=== PATIENT | male | born 1970 ===

== ENCOUNTER 2016-09-08 14:19 | Emergency (ER) | payer OTHER ==
[2016-09-08 14:32] VITALS: RESP 18
[2016-09-08] MEDS ORDERED: Oxycodone/Acetaminophen 5/325 mg Tab PO STA (14:53)
--- NOTE | 2016-09-08 14:54 | C.PDOC ---
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 Patient complaints of lower back pain, right elbow pain and left knee injury. Patient states he accidentally fell off a ladder while at work around 12PM. Patient notes of pain and abrasions and is able to walk without difficulty. Patient denies LOC or head injury. SP FALL ENGINEERING DESIGNER CO R LOWER BACK, R ELBOW AND L KNEE INJURY. PS ACCID FELL OFF LADDER WHILE @ WORK 12'. NO LOC. CO PAIN AND ABRASIONS. AMBUL WO DIFF. DENIES OTHER ASSOC INJURY EXAM MILD DIST NONTOXIC HEENT ATRAUM NECK SUPPLE NONTEND LUNGS CTA B/L ABD NEG BACK +R LOWER BACK TEND W SACRAL TEND; NO DEFORM. LIMTED R ROTATION DUE TO PAIN. EXT R ELBOW MILD SWELL AROM WO DIFF; L KNEE NO SWELL ATRAUM AROM WO DIFF SKIN +ABRASIONS W BRUISING R LOWER BACK, R ELBOW. NO FB, BLEEDING NEURO INTACT - HPI Time Seen by Provider: 09/08/16 14:47 Chief Complaint (Nursing): Back Pain History Per: Patient History/Exam Limitations: no limitations Onset/Duration Of Symptoms: Sudden Onset (3hrs ENGINEERING DESIGNER) Past Medical History Reviewed: Historical Data, Nursing Documentation, Vital Signs Vital Signs: Last Vital Signs Temp 98 F 09/08/16 17:21 Pulse 71 09/08/16 17:21 Resp 18 09/08/16 17:21 BP 120/70 09/08/16 17:21 Pulse Ox 100 09/08/16 17:21 Family History: States: No Known Family Hx - Social History Hx Alcohol Use: Yes Hx Substance Use: No Review Of Systems Except As Marked, All Systems Reviewed And Found Negative. Constitutional: Positive for: Other (No head injury. No LOC. ) Musculoskeletal: Positive for: Back Pain (Right lower back pain), Other ((+) Right elbow pain. Left knee injury. ) Physical Exam - Physical Exam Appears: Well, Non-toxic, In Acute Distress (Mild) Skin: Warm, Dry, No Rash, Other (Abrasions with brusing to the right lower back and right elbow. No FB. No Bleeding. ) Head: Atraumatic, Normacephalic, No Swelling, No Abrasion, No Laceration Neck: Normal, Normal ROM, No Midline Cervical Tenderness, No Paracervical Tenderness, Supple Chest: Symmetrical Cardiovascular: Rhythm Regular, No Murmur Respiratory: Normal Breath Sounds, No Rales, No Rhonchi, No Stridor, No Wheezing Gastrointestinal/Abdominal: Normal Exam, Soft, No Tenderness, No Mass, No Guarding, No Rebound, No Hernia Back: Other ((+) Right lower back tenderness with sacral tenderness. Limited right rotation due to pain. ) Extremity: Capillary Refill (<2), Other (Right Elbow - Mild swelling. AROM without difficulty. Left Knee - No swelling. Atraum. AROM without difficulty. ) Neurological/Psych: Oriented x3, Normal Speech, Normal Motor ED Course And Treatment O2 Sat by Pulse Oximetry: 96 - Other Rad X-Ray - Lumbar Spine X-Ray: Viewed By Me, Read By Radiologist Interpretation: PROCEDURE: Radiographs of the Lumbar Spine. HISTORY: TRAUMA. COMPARISON: No prior. FINDINGS: BONES: No acute compression fractures nor retropulsed fragments. Vertebral bodies exhibit normal stature aside for minor multilevel fish-mouth endplate deformities. There is straightening of the normal cervical lordosis. Vertebral bodies otherwise exhibit normal alignment. DISC SPACES: Disc space heights relatively maintained. Small marginal anterior osteophyte formation seen at the L5-S1 through the L2-L3 levels in somewhat decreasing order of sites. Facet joints are slightly prominent at the L5-S1 and L4-L5 levels. OTHER FINDINGS: None. IMPRESSION: No acute compression fractures. Minor multilevel degenerative spondylosis. X-Ray - Right Knee X-Ray: Viewed By Me, Read By Radiologist Interpretation: PROCEDURE: Right Knee Radiographs. HISTORY: TRAUMA. COMPARISON: None. FINDINGS: BONES: No acute displaced fracture nor dislocation. The osseous structures intact. JOINTS: Joint spaces preserved. Tiny posterior superior patellar osteophyte. JOINT EFFUSION: Questionable trace joint effusion however evaluation for effusion somewhat limited due to over flexion in the lateral projection. OTHER FINDINGS: None. IMPRESSION: No acute fractures. Questionable trace suprapatellar joint Tiny posterior superior patellar osteophyte X-Ray - Right Elbow X-Ray: Viewed By Me, Read By Radiologist Interpretation: PROCEDURE: Radiographs of the right elbow. HISTORY: TRAUMA. COMPARISON: No prior. FINDINGS: BONES: Normal. No fracture. JOINTS: Normal. No osteoarthritis. SOFT TISSUES: Normal. JOINT EFFUSION: Note posterior nor large anterior joint effusion identified. OTHER FINDINGS: There are no radiopaque foreign bodies. IMPRESSION: Unremarkable radiographs of the right elbow. If symptoms persist or occult fracture suspected clinically, consider repeat radiographs in 7-10 days as most fractures should become radiographically evident in this timeframe. X-Ray - Sacrum & Coccyx X-Ray: Viewed By Me, Read By Radiologist Interpretation: No fractures noted. No dislocations. Reevaluation Time: 17:14 Reassessment Condition: Improved Medical Decision Making Medical Decision Making: PLAN: * X-Ray - Right Knee, Lumbar Spine, Right Elbow, Sacrum & Coocyx * Motrin PO * Percocet PO Disposition Counseled Patient/Family Regarding: Studies Performed, Diagnosis, Need For Followup, Rx Given - Disposition Referrals: [facility] [Outside] [facility] [Outside] Disposition: HOME/ ROUTINE Disposition Time: 17:14 Condition: IMPROVED Prescriptions: Ibuprofen [Motrin] 600 mg PO Q6 #30 tab oxyCODONE/Acetaminophen [Percocet 5/325 mg Tab] 1 ea PO QID #8 tab Instructions: Contusion in Adults (ED) Forms: Work Excuse Print Language: GUINEAN - Clinical Impression Clinical Impression: Multiple contusions, Multiple abrasions - Scribe Statement The provider has reviewed the documentation as recorded by the Mirelaibe Paz Barnes Provider Attestation: All medical record entries made by the Mirelaibshonda were at my direction and personally dictated by me. I have reviewed the chart and agree that the record accurately reflects my personal performance of the history, physical exam, medical decision making, and the department course for this patient. I have also personally directed, reviewed, and agree with the discharge instructions and disposition.
[2016-09-08] MEDS ORDERED: Oxycodone/Acetaminophen 5/325 mg Tab ONE (14:58)
--- NOTE | 2016-09-08 17:00 | RAD ---
PROCEDURE: Radiographs of the Lumbar Spine. HISTORY: TRAUMA COMPARISON: No prior. FINDINGS: BONES: No acute compression fractures nor retropulsed fragments. Vertebral bodies exhibit normal stature aside for minor multilevel fish-mouth endplate deformities. There is straightening of the normal cervical lordosis. Vertebral bodies otherwise exhibit normal alignment. DISC SPACES: Disc space heights relatively maintained. Small marginal anterior osteophyte formation seen at the L5-S1 through the L2-L3 levels in somewhat decreasing order of sites. Facet joints are slightly prominent at the L5-S1 and L4-L5 levels. OTHER FINDINGS: None. IMPRESSION: No acute compression fractures. Minor multilevel degenerative spondylosis.
--- NOTE | 2016-09-08 17:03 | RAD ---
PROCEDURE: Right Knee Radiographs. HISTORY: TRAUMA COMPARISON: None. FINDINGS: BONES: No acute displaced fracture nor dislocation. The osseous structures intact JOINTS: Joint spaces preserved. Tiny posterior superior patellar osteophyte. JOINT EFFUSION: Questionable trace joint effusion however evaluation for effusion somewhat limited due to over flexion in the lateral projection. OTHER FINDINGS: None. IMPRESSION: No acute fractures. Questionable trace suprapatellar joint Tiny posterior superior patellar osteophyte
--- NOTE | 2016-09-08 17:06 | RAD ---
PROCEDURE: Radiographs of the right elbow. HISTORY: TRAUMA COMPARISON: No prior. FINDINGS: BONES: Normal. No fracture. JOINTS: Normal. No osteoarthritis. SOFT TISSUES: Normal. JOINT EFFUSION: Note posterior nor large anterior joint effusion identified OTHER FINDINGS: There are no radiopaque foreign bodies. IMPRESSION: Unremarkable radiographs of the right elbow. If symptoms persist or occult fracture suspected clinically, consider repeat radiographs in 7-10 days as most fractures should become radiographically evident in this timeframe.
--- NOTE | 2016-09-08 17:18 | RAD ---
PROCEDURE: Sacrum and coccyx dated 09/08/2016 HISTORY: Trauma COMPARISON: None available. TECHNIQUE: Frontal and lateral views of the sacrum and coccyx FINDINGS: BONES: No definitive radiographic evidence of acute of fracture of the sacrum however note that the distal coccyx may be incompletely visualized on lateral projection. SACROILIAC JOINTS: SI joints appear unremarkable without evidence of widening significant asymmetry, or sclerosis. OTHER FINDINGS: None. IMPRESSION: Somewhat limited study demonstrating no definitive fractures. Symptoms persist or occult fracture suspected clinically, consider followup scan and or MRI.
[2016-09-08 17:21] VITALS: BP 120/70; PULSE 71; TEMP 98
[2016-09-10 09:22] VITALS: O2SAT 96
== END 2016-09-08 17:21 | disposition home or self-care (01) ==
LOC: C.ER 14:19
DX: S30.810A Abrasion of lower back and pelvis, initial encounter (principal); S50.311A Abrasion of right elbow, initial encounter; S50.01XA Contusion of right elbow, initial encounter; S30.0XXA Contusion of lower back and pelvis, initial encounter; W11.XXXA Fall on and from ladder, initial encounter; Y93.89 Activity, other specified; Y92.89 Other specified places as the place of occurrence of the external cause; Y99.0 Civilian activity done for income or pay